=== PATIENT | male | born 1950 | race Caucasian/White ===

== ENCOUNTER 2018-10-22 11:57 | Day surgery (SDC) | payer BC, MEDICARE ==
[2018-10-22] MEDS ORDERED: PROPOFOL 10 MG/ML VIAL IV ONE (11:58)
[2018-10-22] MEDS ORDERED: LIDOCAINE 2% MDV (20MG/ML) 20ML VIAL IV ONE (11:58)
--- NOTE | 2018-10-23 09:50 | Operative Note ---
OPERATION: COLONOSCOPY with cold forceps polypectomy. PREOPERATIVE DIAGNOSIS: Hematochezia. POSTOPERATIVE DIAGNOSES: 1. Hemorrhoids. 2. Sigmoid diverticulosis. 3. Rectal polyp. PREPARATION QUALITY: Good. ESTIMATED BLOOD LOSS: Minimum. COMPLICATIONS: None apparent. SPECIMENS: Rectal polyp. PROCEDURE: After informed consent was obtained from the patient, the patient was placed in the left lateral decubitus position in the endoscopy suite, sedated and monitored by the department of anesthesia. Digital rectal examination was unremarkable. A well-lubricated [id number] colonoscope was inserted into the rectum and advanced to the cecum. Preparation quality was good at best. The cecum, cecal bulb, ileocecal valve, and appendiceal orifice were identified and were unremarkable. The ascending colon, transverse colon, and descending colon were unremarkable. The sigmoid colon demonstrated [id number] diverticular changes. No inflammation, mass lesions, polyps, or fresh or old blood was seen. The rectum was unremarkable in forward. J-turn views did reveal prominent internal hemorrhoids, some other internal hemorrhoids as well. There was also noted to be a diminutive polyp which was removed with a cold forceps with 1 biopsy. There was the expected amount of bleeding noted. The endoscope was straightened, the rectal ampulla deflated, and the endoscope was removed. RECOMMENDATIONS: The patient should resume his medications and follow a high- fiber diet and consider a fiber supplement. He can use topical therapy such as Anusol if needed. He will require repeat exam in 5-10 years pending tissue histology. As always, thank you for allowing me to participate in the healthcare of your patients. KRISTY
== END 2018-10-22 13:55 | disposition home or self-care (01) ==
LOC: HOP 11:57
PROVIDERS: ATTEND Internal Medicine Gastroenterology
DX: K62.5 Hemorrhage of anus and rectum (principal); K92.1 Melena; K57.30 Diverticulosis of large intestine without perforation or abscess without bleeding; K62.1 Rectal polyp; K64.8 Other hemorrhoids; Z79.01 Long term (current) use of anticoagulants; I10 Essential (primary) hypertension; E78.00 Pure hypercholesterolemia, unspecified

== ENCOUNTER 2019-01-21 08:57 | Day surgery (SDC) | payer BC, MEDICARE ==
[2019-01-21] MEDS ORDERED: PROPOFOL 10 MG/ML VIAL IV ONE (08:58)
[2019-01-21] MEDS ORDERED: LIDOCAINE 2% MDV (20MG/ML) 20ML VIAL IV ONE (08:58)
--- NOTE | 2019-01-22 08:30 | Operative Note ---
OPERATION: ESOPHAGOGASTRODUODENOSCOPY with photo. PREOPERATIVE DIAGNOSIS: Iron deficiency anemia of unclear etiology. POSTOPERATIVE DIAGNOSES: 1. Mild petechial changes of duodenal bulb. 2. Scalloping of the second portion of the duodenum highly suspicious for celiac sprue. PROCEDURE: After informed consent was obtained from the patient, he was placed in the left lateral decubitus position in the endoscopy suite, sedated and monitored by the department of anesthesia. A well-lubricated [id number] gastroscope was placed in the posterior oropharynx under direct visualization and passed to the proximal esophagus. The endoscope was advanced through the proximal, mid, and distal esophagus. The esophagus, GE junction, gastric body, and antrum were unremarkable. The pylorus was cannulated revealing some mild petechial changes in the duodenal bulb. The duodenal sweep demonstrated scalloped changes in a mosaic pattern that is highly suspicious and consistent with celiac sprue. biopsies were not obtained due to the patient's continued use of Plavix. J-turn views of the proximal stomach were unrevealing. The endoscope was straightened and retracted from the patient with no new findings or abnormalities were identified. RECOMMENDATIONS: We will check celiac antibodies and anticipate the patient will be placed on a gluten-free diet. If he can discontinue his Plavix, it would be ideal to do biopsies but at this point, that seems unnecessary given the cardiac risk that would be experienced should one discontinue Plavix for biopsies. As always, thank you for allowing me to participate in the healthcare of your patients. KRISTY
== END 2019-01-21 10:12 | disposition home or self-care (01) ==
LOC: HOP 08:57
PROVIDERS: ATTEND Internal Medicine Gastroenterology
DX: D50.9 Iron deficiency anemia, unspecified (principal); K31.9 Disease of stomach and duodenum, unspecified; I10 Essential (primary) hypertension; E78.00 Pure hypercholesterolemia, unspecified